=== PATIENT | male | born 1970 | race African-American/Black ===

== ENCOUNTER 2024-12-27 14:55 | Emergency (ER) | payer SELFPAY ==
[~2024-12-27] VITALS: Ht 182.9 cm; Wt 86.2 kg
[2024-12-27 16:05] VITALS: O2SAT 100
== END 2024-12-27 17:10 | disposition left against medical advice (07) ==
LOC: ER 14:55
DX: Z00.8 Encounter for other general examination (principal); Z53.21 Procedure and treatment not carried out due to patient leaving prior to being seen by health care provider
CPT/HCPCS: A4606; A4663